=== PATIENT | female | born 1955 | race Caucasian/White ===

== ENCOUNTER 2018-06-12 10:51 | Inpatient (IN) ==
[2018-06-12 11:35] LABS: URINE SOURCE CLEAN CATCH
[2018-06-12 11:36] LABS: BASO# 0.01 X1000 (0.0-0.2); BASO% 0.1 % (0.0-0.8); EOS# 0.01 X1000 (0.0-0.7); EOS% 0.1 % (0.0-10.0); HEMATOCRIT 52.5 % (37.0-47.0); HEMOGLOBIN 18.3 g/dL (12.0-16.0); LYMPH# 0.23 X1000 (1.2-3.4); LYMPH% 2.7 % (20.5-51.1); MCH 31.1 PG (27-31); MCHC 34.9 g/dL (33-37); MCV 89.1 FL (81-99); MONO# 0.41 X1000 (0.11-0.59); MONO% 4.7 % (1.7-9.3); MPV 9.7 FL (7.4-10.4); NEUT# 7.98 X1000 (1.4-6.5); NEUT% 92.4 % (42.2-75.2); PLT 233 X1000 (130-400); RBC 5.89 XMIL (4.2-5.4); RDW 14.1 % (11.5-14.5); WBC 8.64 X1000 (4.8-10.8)
[2018-06-12 11:43] LABS: BILIRUBIN URINE NEGATIVE (NEGATIVE); BLOOD URINE NEGATIVE (NEGATIVE); COLOR ORANGE; GLUCOSE URINE 100 mg/dL (NEGATIVE); KETONE URINE TRACE mg/dL (NEGATIVE); LEUKOCYTES URINE LARGE (NEGATIVE); NITRITE URINE POSITIVE (NEGATIVE); PH URINE 5.5; PROTEIN URINE 100 mg/dL (NEGATIVE); SP GRAVITY URINE 1.025; TURBIDITY URINE HAZY (CLEAR); UROBILINOGEN URINE NORMAL (NORMAL)
[2018-06-12 11:56] LABS: ALBUMIN 4.5 g/dL (3.5-5.0); CALCIUM 9.1 mg/dL (8.8-10.2); CREATININE 1.1 mg/dL (0.5-0.9); POTASSIUM 4.4 mmol/L (3.5-5.1); TOTAL BILIRUBIN 1.84 mg/dL (0.20-1.00); TOTAL PROTEIN 6.8 g/dL (6.3-8.3)
[2018-06-12 12:00] LABS: UR EPITHELIAL CELLS <10 /HPF (<10); URINE BACTERIA 4+ /HPF; URINE CASTS WHITE CELL PRESENT; URINE CRYSTALS NONE SEEN; URINE RBC <10 /HPF (<10); URINE WBC TNTC /HPF (<10); URINE YEAST NONE SEEN
[2018-06-12 12:01] LABS: URINE SMALL ROUND CELLS NONE SEEN
--- NOTE | 2018-06-12 12:18 | EKG Report ---
Test Performed on : 06/12/2018 11:07:29 AM Test Reason : chest pain Blood Pressure : / mmHG Vent. Rate : 111 BPM Atrial Rate : 111 BPM P-R Int : 130 ms QRS Dur : 074 ms QT Int : 334 ms P-R-T Axes : 041 007 029 degrees QTc Int : 454 ms Sinus tachycardia. Otherwise normal ECG No previous ECGs available Unconfirmed Result
[2018-06-12 12:23] LABS: BANDS 4 % (0-1); LYMPHS 4 % (21-51); SEGS 92 % (42-75)
--- NOTE | 2018-06-12 12:32 | Diag Imaging Result Doc PS360 ---
CHEST-1 VIEW - 06/12/2018 INDICATION: chest pain COMPARISON: None FINDINGS: The lungs are normally expanded and clear. Heart size and mediastinal contours are normal. No pneumothorax or pleural effusion. IMPRESSION: Negative exam. Electronically signed by Zay Sepulveda 06/12/2018 12:30 PM
--- NOTE | 2018-06-12 13:23 | PROVIDER DOCUMENTATION ---
This chart was entered by Anahy Nathan Scribe, acting as scribe for Alok Bains MD. HPI-Chest Pain - General Chief Complaint: Chest Pain Stated Complaint: N/V Time Seen by Provider: 06/12/18 11:18 Source: patient, EMS, other (nurse from [facility]) Unable to obtain history due to:: other (pt is nonverbal at baseline) Allergies/Adverse Reactions: Patient Allergies Allergy/AdvReac Type Severity Reaction Status Date / Time banana Allergy Unknown Verified 06/12/18 11:51 Sulfa (Sulfonamide Allergy Unknown Verified 06/12/18 11:51 Antibiotics) Home Medications: Home Medication List Medication Instructions Recorded Confirmed Last Taken Type Nitrofurantoin Monohyd/M-Cryst 100 mg PO BID #20 capsule 03/14/18 Unknown Rx [Macrobid 100 mg Capsule] - History of Present Illness-CP Nature of Presenting Problem: 63 yof presents to the ed via ems. pt has aphasia and does not communicate at all. this is baseline per daughter. per ems pt walked to the desk at [facility] and was looking to be in distress and vomited x1. per ems pt was holding abdomen enroute. pt on exam is nontoxic in appearance and shows no distress. daughter is at bedside Location: reports: epigastric (was gaurding) Chest Pain Radiation: reports: no radiation Severity in ED: mild Onset/Duration: this morning Timing: gone now Context/Activities at Onset: reports: light activity Modifying Factors: improves with: nothing Associated Symptoms: reports: abdominal pain (epigastric), nausea, vomiting (x1) . denies: shortness of breath Nitro Today/Relief: no nitro taken today Aspirin Treatment Today: no aspirin today Prior Chest Pain/Cardiac Workup: reports: no prior chest pain Similar Symptoms Previously?: No Recently Seen Here or By Another Healthcare Provider: No Review of Systems - Adult - REVIEW OF SYSTEMS - ADULT Constitutional: denies: chills, fever Eyes: reports: no symptoms reported Ears, Nose, Mouth & Throat: reports: no symptoms reported Cardiovascular: reports: see HPI, chest pain. denies: palpitations, syncope Respiratory: denies: shortness of breath, wheezing Gastrointestinal: reports: see HPI, abdominal pain, nausea, vomiting (x1) Genitourinary: reports: no symptoms reported Musculoskeletal: denies: back pain, neck pain Integumentary: reports: no symptoms reported Neurological: denies: dizziness/vertigo, headache/migraines Psychiatric: reports: no symptoms reported Endocrine: reports: no symptoms reported Hematologic/Lymphatic: reports: no symptoms reported Allergic/Immunologic: reports: no symptoms reported All Other Systems: Reviewed and Negative Past History - Adult - PAST MEDICAL HISTORY-ADULT Review of Records: reports: Old Records Reviewed, Nursing Assessment Review, Medications Reviewed, Social history reviewed & non-contributory. Major Childhood Illnesses: reports: denies history Cardiovascular: reports: HTN Respiratory: reports: denies history Gastrointestinal: reports: denies history Obstetrical/Gynecological: reports: denies history Genitourinary: reports: denies history Musculoskeletal: reports: denies history Hand Dominance: Right Handed Neurological: reports: Alzheimer's, cognitive dysfunction, dementia, speech difficulty Psychiatric: reports: denies history Endocrine/Immune: reports: Diabetes Diabetes Type: Type 2 Other Conditions: reports: denies history - PRIOR SURGERIES/PROCEDURES Surgical/Procedure History: reports: - IMMUNIZATION STATUS Childhood Immunizations: See Nurse Assessment Flu Vaccine: See Nurse Assessment - FAMILY HISTORY Family History: reviewed, not pertinent - SOCIAL HISTORY Smoking: non-smoker Substance Use: none/never Living Situation: care facility Physical Exam-General - PHYSICAL EXAM-ADULT Exam Limited by: pt is nonverbal at baseline Initial Vital Signs Reviewed: Yes - CONSTITUTIONAL General Appearance: appears well, alert, no apparent distress, obese - EYES Eyes: PERRL/EOMI, pink conjunctivae - HEAD, EARS, NOSE, MOUTH & THROAT HENMT: moist mucous membranes - NECK Neck: normal inspection - RESPIRATORY Respiratory: normal breath sounds - CARDIOVASCULAR Cardiovascular: normal peripheral pulses, tachycardia (111) - GASTROINTESTINAL (ABDOMEN) Abdominal Exam: normal bowel sounds, soft, other (well healed c section scar) - LYMPHATIC Lymphatic: no adenopathy - MUSCULOSKELETAL Back Exam: normal inspection Extremity: normal inspection - SKIN Integumentary: normal color, normal turgor, warm/dry - NEUROLOGIC Neurologic: aphasia (baseline) - HEART Score HEART Score: History: Slightly Suspicious HEART Score: ECG: Non-Specific Repolarization Disturbance/LBBB/PM HEART Score: Age: > or = 65 Years HEART Score: Risk Factors for Atherosclerotic Disease: 1 or 2 Risk Factors HEART Score: Troponin: < or = Normal Limit Total HEART Score:: 4 Progress - PLAN OF CARE/RESULTS Progress/Plan/Lab Results: Vital Signs - 8 hr 06/12/18 11:02 06/12/18 13:09 Temperature 97.6 F Pulse Rate 111 H 107 H Respiratory Rate 20 22 Blood Pressure 154/89 143/80 O2 Sat by Pulse Oximetry 95 99 Laboratory Results - last 24 hr 06/12/18 06/12/18 06/12/18 11:15 11:15 11:15 WBC 8.64 RBC 5.89 H Hgb 18.3 H Hct 52.5 H MCV 89.1 MCH 31.1 H MCHC 34.9 RDW Std Deviation 14.1 Plt Count 233 MPV 9.7 Immature Gran % (Auto) 0.0 Neut % (Auto) 92.4 H Lymph % (Auto) 2.7 L [place] % (Auto) 4.7 Eos % (Auto) 0.1 Baso % (Auto) 0.1 Immature Gran # (Auto) 0.00 Neut # (Auto) 7.98 H Lymph # (Auto) 0.23 L [place] # (Auto) 0.41 Eos # (Auto) 0.01 Baso # (Auto) 0.01 Segmented Neutrophils 92 H Band Neutrophils 4 H Lymphocytes 4 L Sodium 143 Potassium 4.4 Chloride 100 Carbon Dioxide 25 Anion Gap 18 BUN 14 Creatinine 1.1 H Estimated GFR/1.73 m2 50 BUN/Creatinine Ratio 13 Glucose 277 H Calculated Osmolality 295 Calcium 9.1 Total Bilirubin 1.84 H AST 14 ALT 20 Alkaline Phosphatase 89 Creatine Kinase 25 Troponin T < 0.010 Euz-K-Ilmlggqynwd Pept Total Protein 6.8 Albumin 4.5 Globulin 2.3 Albumin/Globulin Ratio 2.0 Urine Source Urine Color Urine Turbidity Urine pH Ur Specific [place] Urine Protein Ur Glucose (Stick) Ur Ketones (Stick) Urine Blood Urine Nitrite Urine Bilirubin Urobilinogen Dipstick Urine Leukocytes Urine WBC (Auto) Urine RBC (Auto) U Epithel Cells (Auto) Urine Bacteria (Auto) Urine Crystals Small Round Cells Urine Casts Urine Yeast-like Cells 06/12/18 06/12/18 11:15 11:30 WBC RBC Hgb Hct MCV MCH MCHC RDW Std Deviation Plt Count MPV Immature Gran % (Auto) Neut % (Auto) Lymph % (Auto) [place] % (Auto) Eos % (Auto) Baso % (Auto) Immature Gran # (Auto) Neut # (Auto) Lymph # (Auto) [place] # (Auto) Eos # (Auto) Baso # (Auto) Segmented Neutrophils Band Neutrophils Lymphocytes Sodium Potassium Chloride Carbon Dioxide Anion Gap BUN Creatinine Estimated GFR/1.73 m2 BUN/Creatinine Ratio Glucose Calculated Osmolality Calcium Total Bilirubin AST ALT Alkaline Phosphatase Creatine Kinase Troponin T Srr-K-Liybxxowexb Pept 82 Total Protein Albumin Globulin Albumin/Globulin Ratio Urine Source CLEAN CATCH Urine Color ORANGE Urine Turbidity HAZY Urine pH 5.5 Ur Specific [place] 1.025 Urine Protein 100 A Ur Glucose (Stick) 100 A Ur Ketones (Stick) TRACE A Urine Blood NEGATIVE Urine Nitrite POSITIVE A Urine Bilirubin NEGATIVE Urobilinogen Dipstick NORMAL Urine Leukocytes LARGE A Urine WBC (Auto) TNTC A Urine RBC (Auto) <10 U Epithel Cells (Auto) <10 Urine Bacteria (Auto) 4+ Urine Crystals NONE SEEN Small Round Cells NONE SEEN Urine Casts WHITE CELL PRESENT Urine Yeast-like Cells NONE SEEN Orders Category Date Time Status Admit - [facility] Routine AdmDCTranf 06/12/18 13:02 Active Notify MD if DIRECTED Care 06/12/18 13:02 Active OT: OT EVALUATION - HOSPITAL ( DIRECTED Care 06/12/18 13:36 Active Saline Loc DIRECTED Care 06/12/18 13:02 Active Vital Signs Order Q 4-HR ASSESS Care 06/12/18 13:02 Active Z-Document. for Tele Applied ORDERED Care 06/12/18 13:03 Active Social Service Consult Routine Cons 06/12/18 13:[address] THORAX W/O CONTRAST [CT] Stat Exams 06/12/18 13:35 Ordered cxr [CHEST-1 VIEW] [RAD] Stat Exams 06/12/18 11:20 Completed CBC WITH DIFF [HEME] Stat Lab 06/12/18 11:15 Completed CK PROFILE [SP CHEM] Stat Lab 06/12/18 11:15 Completed COMPREHENSIVE METABOLIC PANEL [CHEM] Stat Lab 06/12/18 11:15 Completed PRO B-NATRIURETIC PEPTIDE Stat Lab 06/12/18 11:15 Completed TROPONIN T Q6H Lab 06/12/18 13:35 Uncollected TROPONIN T Q6H Lab 06/12/18 19:35 Uncollected TROPONIN T Q6H Lab 06/13/18 01:35 Uncollected TROPONIN T Stat Lab 06/12/18 11:15 Completed URINALYSIS [URINALYSIS] Stat Lab 06/12/18 11:30 Completed URINE CULTURE [RM] Stat Lab 06/12/18 13:35 Uncollected URINE MANUAL MICROSCOPIC [URINALYSIS] Stat Lab 06/12/18 11:30 Completed 0.9% Sodium Chloride Inj [Ns] 1,000 ml Med 06/12/18 13:35 Active IV 100 mls/hr CefTRIAXONE [Rocephin] 2 gm Med 06/12/18 13:35 Active 0.9% Sodium Chloride Inj [Ns] 50 ml IV Q24H Enoxaparin [Lovenox] Med 06/12/18 13:35 Active 40 mg SUBQ Q24H Morphine Med 06/12/18 13:35 Active 2 mg IV Q4H PRN PRN Ondansetron [Zofran] Med 06/12/18 13:35 Active 4 mg IV Q4H PRN PRN Pantoprazole [Protonix] Med 06/12/18 13:35 Active 40 mg IV Q24H Oxygen Device Routine Oth 06/12/18 13:02 Active Telemetry [OM.EQ] Routine Oth 06/12/18 13:02 Active EKG [EKG] Stat Ther 06/12/18 11:18 Draft Echo Spec/Color Dop W/O Contra Routine Ther 06/12/18 13:35 Ordered PT [Physical Therapy Eval/Treatment] [OM.PT] Routine Ther 06/12/18 13:36 Active Transfer/Admit Order [TRANSFER] Routine Transfer 06/12/18 13:03 Ordered Result Diagrams: 06/12/18 11:15 06/12/18 11:15 - REASSESSMENT Reassessment #1 Time Reassessed: 12:43 Status: improving - EKG 1 Time of EKG reading by physician:: 11:07 EKG Read and Signed by:: Alok Bains EKG Interpretation (*Must complete 3 of following elements*): Normal Rate: 111 Rhythm: sinus tachycardia Mcnary: normal QRS: normal NC Interval: normal ST Wave: normal - XRAY 1 XRAY: Bilateral XRAY Study: Chest Impression: See EMR Report (CHEST-1 VIEW - 06/12/2018 INDICATION: chest pain COMPARISON: None FINDINGS: The lungs are normally expanded and clear. Heart size and mediastinal contours are normal. No pneumothorax or pleural effusion. IMPRESSION: Negative exam. Electronically signed by Zay Sepulveda 06/12/2018 12:30 PM 06/12/18 1230 Interpreting Physician: Zay Sepulveda MD Dictated Date/Time: 06/12/18 1229 cc: Alok Bains MD; None,PCP) - CONSULTS/PCP/HOSPITALIST Notification #1 *Consult/PCP/Hospitalist*: estrella with hospitalist Time Discussed: 12:44 Reason/Comments: uti Consult Disposition: other (phine consult) #2 Consult: Pt discussed with hospitalist who agreed to admit. Time Discussed: 13:00 Consult Disposition: Will see in ED Departure - Departure Date of Disposition Decision: 06/12/18 Time of Disposition Decision: 13:22 DIAGNOSIS: UTI (urinary tract infection), Chest pain, Elevated blood pressure reading Disposition: ADMITTED INPATIENT 09 Certified Medical Emergency: Emergent Condition: Fair Referrals and Follow-Ups: None,PCP [Primary Care Provider] - - Critical Care Note This patient required my direct & personal management of CC.: No Attestation - Physician/ JOSUE Attestation Patient care was provided by Advanced Practice Provider:: No The physician spent face to face time with patient:: Yes Advanced Practice Provider documentation review:: Supervising physician onsite and consulted in the evaluation and care of this patient. The physician did have a face to face encounter with the patient. This chart was documented by the indicated scribe, (Anahy Nathan Scribe) and accurately reflects the services I performed and decisions made by me, Alok Bains MD, as attested by the provider's signature.
[2018-06-12] MEDS ORDERED: MORPHINE IV PRN (13:35)
[2018-06-12] MEDS ORDERED: ZOFRAN IV PRN (13:35)
[2018-06-12] MEDS: LOVENOX SUBQ SCH (14:04)
[2018-06-12] MEDS: ROCEPHIN 2 GM in NS 50 ML IV SCH (14:09)
[2018-06-12] MEDS: NS 1,000 ML IV SCH ×2 (14:09→20:33)
[2018-06-12] MEDS: PROTONIX IV SCH (14:09)
[2018-06-12] MEDS ORDERED: SODIUM CHLORIDE 0.9% INJ SCH (14:13)
--- NOTE | 2018-06-12 14:46 | Diag Imaging Result Doc PS360 ---
CT THORAX W/O CONTRAST - 06/12/2018 INDICATION: chest pain COMPARISON: Chest x-ray from earlier today FINDINGS: There is no adenopathy. Heart and great vessels are normal. There is some linear atelectasis in the lung bases. Otherwise no significant infiltrates. No pneumothorax or pleural effusion. Upper abdominal images are unremarkable. There are moderate degenerative changes of the spine. No acute or suspicious bony lesion. IMPRESSION: No acute disease. This exam was performed using automated exposure control, adjustment of mA or kV according to patient size, and/or use of iterative reconstruction technique Electronically signed by Zay Sepulveda 06/12/2018 2:44 PM
[2018-06-12 16:02] LABS: HEMOGLOBIN A1C 5.9 % (4.8-6.0)
--- NOTE | 2018-06-12 17:57 | HISTORY AND PHYSICAL ---
CHIEF COMPLAINT: Chest pain. HISTORY OF PRESENT ILLNESS: Mrs. Fajardo is a 63-year-old female with a history of hypertension, diabetes mellitus, and advanced dementia, who presents from [facility] with a question of chest pain. She has permanent aphasia from her dementia and is unable to communicate. Her daughter at the bedside states that earlier this morning she walked up to the front tender at [place] clutching her chest and had an episode of emesis. At that time, the staff felt she might be having an NC and transported her here to our ER. In the ER, she was noted to have a large urinary tract infection and some polycythemia but otherwise really unremarkable. Her troponins have been negative x2 sets. Her EKG does not show anything acute. We have been asked to admit her for further treatment and evaluation. PAST MEDICAL HISTORY: 1. Advanced dementia with aphasia. 2. Diabetes mellitus type 2 no longer on medication, not needed per daughter's report due to normal glycemia. 3. Hypertension. 4. Chronic urinary tract infections. 5. Urinary incontinence. PAST SURGICAL HISTORY: and nasal surgery. SOCIAL HISTORY: No tobacco, alcohol, or drug use. She is . Her daughter is at the bedside. She lives at [place]. FAMILY HISTORY: Noncontributory. ALLERGIES: To banana and sulfa. REVIEW OF SYSTEMS: Unable to obtain. HOME MEDICATIONS: Yet to be compiled. PHYSICAL EXAMINATION: VITAL SIGNS: Blood pressure is 143/80, heart rate is 107, respiratory rate 22, O2 saturation is 99% on room air, temperature is 97.6. GENERAL: This is a well-developed well-nourished female lying in hospital bed in no acute distress. NEUROLOGIC: The patient is sitting in hospital bed, awake, but does not acknowledge verbal stimulus. She will not follow commands. She does occasionally move all 4 extremities. HEENT: Head is atraumatic and normocephalic. Her pupils are equal, round, and reactive to light. Oral mucosa is dry. NECK: Trachea is midline. There is no JVD. CHEST: Clear to auscultation. CARDIOVASCULAR: Regular rate and rhythm. S1 and S2 is noted. No murmurs. GASTROINTESTINAL: Soft, nondistended, nontender. Bowel sounds positive. EXTREMITIES: Trace edema. Pulses 2+ bilaterally. DIAGNOSTIC DATA: Chest x-ray is negative. Chest CT negative. EKG sinus tachycardia, no acute disease. WBC 8.64, hemoglobin 18.3, hematocrit 52.5, platelet count 233. Sodium 143, potassium 4.4, chloride 100, CO2 25, anion gap 18, BUN 14, creatinine 1.1, glucose 277, calcium 9.1, total bilirubin 1.84, AST 14, ALT 20, alkaline phosphatase 89. Troponin negative x2 sets. Albumin 4.5. UA large UTI. ASSESSMENT AND PLAN: 1. Question of chest pain: Will check an echocardiogram, trend her cardiac enzymes, make sure she is on aspirin, check lipid panel and A1c in the morning. Will continue Cardiology if there is any acute changes. 2. Urinary tract infection. Cultures pending. Continue antibiotics. 3. Diabetes mellitus: Blood sugar is 277. Will start her pattern sugars and check a hemoglobin A1c. 4. Hypertension. Will continue home medications once reconciled. 5. Polycythemia: Likely dehydration related. Will add normal saline and recheck a CBC in the morning. 6. The patient is Do Not Resuscitate level 1. Dictated by LAURA Fung for Usman Pedersen MD Addendum: Patient seen and examined by myself. Agree with LAURA note. It reflects my assessment and plan. Patient is being admitted to hospital for chest pain workup and UTI. Will trend troponins, place her on telemetry and will order echocardiogram. Urine culture has been ordered so will start IV antibiotics now and will monitor this patient closely. cc: LAURA Fung MD [facility]
[2018-06-12] MEDS: HUMULIN R SUBQ SCH ×2 (18:57→20:32)
[2018-06-12] MEDS: ASPIRIN PO SCH (19:01)
[2018-06-13] MEDS ORDERED: TYLENOL PO PRN (02:39)
[2018-06-13] MEDS: NS 1,000 ML IV SCH ×2 (06:14→15:34)
[2018-06-13] MEDS: HUMULIN R SUBQ SCH ×4 (06:19→21:20)
[2018-06-13 07:00] LABS: BASO# 0.01 X1000 (0.0-0.2); BASO% 0.2 % (0.0-0.8); EOS# 0.02 X1000 (0.0-0.7); EOS% 0.4 % (0.0-10.0); HEMATOCRIT 43.5 % (37.0-47.0); HEMOGLOBIN 15.1 g/dL (12.0-16.0); LYMPH# 0.88 X1000 (1.2-3.4); MCH 31.7 PG (27-31); MCHC 34.7 g/dL (33-37); MCV 91.2 FL (81-99); MONO# 0.57 X1000 (0.11-0.59); MONO% 12.3 % (1.7-9.3); MPV 9.7 FL (7.4-10.4); NEUT# 3.14 X1000 (1.4-6.5); NEUT% 68.1 % (42.2-75.2); PLT 163 X1000 (130-400); RBC 4.77 XMIL (4.2-5.4); RDW 13.9 % (11.5-14.5); WBC 4.62 X1000 (4.8-10.8)
[2018-06-13 07:29] LABS: AGAP 10; BUN 11 mg/dL (8-22); CALCIUM 7.7 mg/dL (8.8-10.2); CHLORIDE 109 mmol/L (98-107); COSMO 291; CREATININE 0.7 mg/dL (0.5-0.9); ESTIMATED GFR > 60; GLUCOSE 176 mg/dL (70-104); POTASSIUM 3.8 mmol/L (3.5-5.1); SODIUM 144 mmol/L (136-145); TCO2 25 mmol/L (25-35)
--- NOTE | 2018-06-13 10:04 | ECHO REPORT ---
ORDER DATE: 06/12/2018 INDICATION FOR THE STUDY: Dementia, hypertension. FINDINGS: 1. The right atrium appears normal in size at 2.6 cm. 2. Trace tricuspid regurgitation. Insufficient data to estimate RV systolic pressure. 3. Normal RV size and systolic function. 4. No significant pulmonic insufficiency. 5. Normal left atrial size with a dimension of 3.9 cm. 6. No mitral valve prolapse. No significant mitral regurgitation. 7. The left ventricle end-diastolic borders are very difficult to visualize. I do not believe there is a significant degree of LV dilatation. In addition, if there is left ventricular hypertrophy, it is likely very mild. Normal LV systolic function. Estimated ejection fraction of 65% with no clear wall motion abnormalities. 8. Aortic valve opens well with no evidence of stenosis or insufficiency. 9. Aorta appears normal in visualized segments. 10. No pericardial effusion seen. cc: MD Usman Spears MD
[2018-06-13] MEDS: ASPIRIN PO SCH (10:24)
--- NOTE | 2018-06-13 12:00 | PROGRESS NOTE ---
DATE: 06/13/2018 SUBJECTIVE: The patient is nonverbal. Daughter, who is at bedside, reports that she is fine. No acute issues noted as per nursing staff. OBJECTIVE: Vital Signs: Temperature 98.4 degrees, heart rate 83, respiratory rate 19, blood pressure 150/61, O2 saturation 96% on room air. General Examination: This is a chronically ill- looking, 63-year-old, female lying in bed, in no acute distress. Cardiovascular Examination: S1 and S2 heard. No murmurs, gallops, or rubs. Regular rate and rhythm. Respiratory Examination: Clear bilaterally to auscultation. No work of breathing or using accessory muscles. Abdomen: Soft, nontender to palpation. Bowel sounds present. No organomegaly. Extremities: No clubbing, cyanosis, or edema. Peripheral pulses present in both legs. Neurological Examination: The patient is sitting in the hospital bed and does not follow commands. Occasionally, she does move her extremities. Laboratory Data: Reviewed. Troponin has been checked 3 times and is negative. Echocardiogram, Doppler showed ejection fraction of 65% with no gross valvular abnormalities noted. ASSESSMENT AND PLAN: 1. Question of chest pain. One reason why this patient was admitted to the hospital was a possibility of chest pain because the patient is nonverbal and she pointed at her chest. We have done basically an echocardiogram, we have checked troponins three times, and electrocardiogram, and everything returned normal. The hemoglobin A1c is completely normal at 5.9, even though she has some elevation of blood sugars. At this point, we are not going to pursue anymore further cardiac workup. 2. Urinary tract infection. The urinalysis showed some contamination but the urine culture is okay but she has developed a fever of 100.7. At this time, because clinically she is not able to provide any more information, I prefer to continue with ceftriaxone and complete 10 days of that. 3. Diabetes mellitus type 2. Hemoglobin A1c is normal. We will continue to do a sliding scale insulin and Accu-Cheks before meals and also at bedtime. 4. Hypertension. Blood pressure is under control. We will continue with the same management. 5. Code status. Do Not Resuscitate level 1. 6. Disposition. The patient has been living in an assisted living facility. As per the family, they were told that they had 30 days to look for a higher level of care facility like a long- term prison. I think this patient needs to be sent to a rehab facility versus long-term care facility. The patient has history of advanced severe temporal dementia. We have talked with social services designee and they are working on placement for this patient. cc: Usman Pedresen MD
[2018-06-13] MEDS: LOVENOX SUBQ SCH (15:25)
[2018-06-13] MEDS: PROTONIX IV SCH (15:26)
[2018-06-13] MEDS: ROCEPHIN 2 GM in NS 50 ML IV SCH (15:34)
[2018-06-14] MEDS: NS 1,000 ML IV SCH ×3 (01:29→22:38)
[2018-06-14] MEDS: HUMULIN R SUBQ SCH ×4 (06:29→21:14)
[2018-06-14 07:32] LABS: BASO# 0.01 X1000 (0.0-0.2); BASO% 0.2 % (0.0-0.8); EOS# 0.17 X1000 (0.0-0.7); EOS% 3.5 % (0.0-10.0); HEMATOCRIT 42.1 % (37.0-47.0); HEMOGLOBIN 14.8 g/dL (12.0-16.0); LYMPH# 1.58 X1000 (1.2-3.4); LYMPH% 32.4 % (20.5-51.1); MCH 31.6 PG (27-31); MCHC 35.2 g/dL (33-37); MONO# 0.67 X1000 (0.11-0.59); MONO% 13.8 % (1.7-9.3); NEUT# 2.44 X1000 (1.4-6.5); NEUT% 50.1 % (42.2-75.2); PLT 134 X1000 (130-400); RBC 4.68 XMIL (4.2-5.4); RDW 13.6 % (11.5-14.5); WBC 4.87 X1000 (4.8-10.8)
[2018-06-14 07:58] LABS: AGAP 9; BUN 8 mg/dL (8-22); CALCIUM 7.1 mg/dL (8.8-10.2); CHLORIDE 108 mmol/L (98-107); COSMO 286; CREATININE 0.7 mg/dL (0.5-0.9); ESTIMATED GFR > 60; GLUCOSE 142 mg/dL (70-104); POTASSIUM 3.8 mmol/L (3.5-5.1); SODIUM 143 mmol/L (136-145); TCO2 26 mmol/L (25-35)
[2018-06-14] MEDS: ASPIRIN PO SCH (08:28)
[2018-06-14] MEDS: LOVENOX SUBQ SCH (13:15)
[2018-06-14] MEDS: PROTONIX IV SCH (13:16)
[2018-06-14] MEDS: ROCEPHIN 2 GM in NS 50 ML IV SCH (14:43)
--- NOTE | 2018-06-14 20:03 | PROGRESS NOTE ---
DATE: 06/14/2018 INTERVAL HISTORY: No acute events. The patient was admitted for sepsis due to urinary tract infection, receiving intravenous antibiotic. Input and output charting suggests that the patient ate 75% of her meals. SUBJECTIVE: Patient is nonverbal, does not appear in acute distress. VITAL SIGNS: Suggestive of temperature 98.5, pulse 86, respiratory rate 18, blood pressure 147/81. Saturating 98% on room air. PHYSICAL EXAMINATION: General: Does not appear in any acute distress. She does not follow commands. Lungs: Air entry bilaterally equal. No wheeze, no rhonchi, no crackles. Cardiovascular: S1, S2 normal. No murmur, rub or gallop. Abdomen: Soft, nontender. No lower extremity edema. LABS: Suggestive of no leukocytosis. Stable hemoglobin, hematocrit and platelet count. Acceptable range of blood sugar levels. Lipid panels were within normal limits. Microbiology: Urine culture was thought to be a possible contaminant with multiple organisms. Blood cultures no growth to date. ASSESSMENT AND PLAN: 1. Sepsis due to urinary tract infection, though urine sample was thought to be contaminated. The patient did have leukocytosis and tachycardia on admission, which after intravenous antibiotics had resolved. My plan is to complete 5 to 7 days course of treatment. I will change her antibiotics to levofloxacin at the time of discharge. 2. Chest pain, as suggested by the patient was pointing towards her chest. However, echocardiogram, troponins, EKG have been unremarkable. No further cardiac workup would be needed in her case. 3. History of [id number] diabetes mellitus type 2. Her hemoglobin A1c is normal. 4. Essential hypertension, currently in acceptable range. 5. Acute kidney injury on admission, now resolved. 6. History of frontotemporal dementia, aware. Currently appears to be at baseline. 7. Disposition. The patient has DNR level 1 code status. I called the patient's daughter who is a surrogate decision maker and discussed with her about patient's clinical condition. Daughter is willing to take the patient to rehab for which she has been provided options. I think the patient should be ready to be discharged in next 24 hours, as soon as a bed becomes available. cc: MD EMA Clancy
[2018-06-15] MEDS: HUMULIN R SUBQ SCH ×2 (05:59→13:06)
[2018-06-15 07:23] LABS: BASO# 0.02 X1000 (0.0-0.2); BASO% 0.5 % (0.0-0.8); EOS# 0.16 X1000 (0.0-0.7); EOS% 3.6 % (0.0-10.0); HEMATOCRIT 40.3 % (37.0-47.0); HEMOGLOBIN 14.5 g/dL (12.0-16.0); IMM GRAN# 0.02 X1000 (0.0-0.04); IMM GRAN% 0.5 % (0.0-0.5); LYMPH# 1.31 X1000 (1.2-3.4); LYMPH% 29.6 % (20.5-51.1); MCH 31.6 PG (27-31); MCV 87.8 FL (81-99); MONO# 0.44 X1000 (0.11-0.59); MONO% 9.9 % (1.7-9.3); MPV 10.3 FL (7.4-10.4); NEUT# 2.48 X1000 (1.4-6.5); NEUT% 55.9 % (42.2-75.2); PLT 145 X1000 (130-400); RBC 4.59 XMIL (4.2-5.4); RDW 13.1 % (11.5-14.5); WBC 4.43 X1000 (4.8-10.8)
[2018-06-15] MEDS ORDERED: DESYREL PO PRN (07:33)
[2018-06-15] MEDS ORDERED: TYLENOL PO PRN (07:33)
[2018-06-15] MEDS ORDERED: MELATONIN PO PRN (07:33)
[2018-06-15 07:36] LABS: AGAP 10; BUN 6 mg/dL (8-22); CALCIUM 7.9 mg/dL (8.8-10.2); CHLORIDE 109 mmol/L (98-107); COSMO 288; CREATININE 0.6 mg/dL (0.5-0.9); ESTIMATED GFR > 60; GLUCOSE 164 mg/dL (70-104); POTASSIUM 3.5 mmol/L (3.5-5.1); SODIUM 144 mmol/L (136-145); TCO2 25 mmol/L (25-35)
[2018-06-15] MEDS ORDERED: KEFLEX PO SCH (09:00)
[2018-06-15] MEDS ORDERED: LOPRESSOR PO SCH (09:00)
[2018-06-15] MEDS ORDERED: PRINIVIL PO SCH (09:00)
--- NOTE | 2018-06-15 09:35 | PROGRESS NOTE ---
DATE: 06/15/2009 INTERVAL HISTORY: No acute overnight events. SUBJECTIVE: The patient is nonverbal, does not appear to be in any acute distress. VITALS: Suggestive of temperature 98.6 degrees, pulse 85, blood pressure 178/66, saturation 96% on room air. Her respiratory rate is 18 per minute. PHYSICAL EXAMINATION: The patient does not appear in any acute distress. She is awake, alert, but not responding, does not follow commands. Lungs: Air entry bilaterally. No wheeze, rhonchi, crackles. Cardiovascular: S1, S2 normal. No murmur or gallop. Abdomen: Soft, nontender. Extremities: No lower extremity edema. LAB: No new lab abnormalities today. Her hemoglobin, hematocrit, platelet within normal range. Creatinine of 0.6. ASSESSMENT AND PLAN: 1. Chest pain suggested by the patient was pointing towards her chest with negative workup including EKG, troponins and echocardiogram. 2. Sepsis due to urinary tract infection, though the urine sample was an improper collection. Her fever and tachycardia resolved after antibiotics. I will discharge her on p.o. cephalexin. 1. Wya-xodrwyn-rjbkqzuzh diabetes mellitus type 2. However, hemoglobin A1c is normal. 2. Essential hypertension. I resumed her home metoprolol, lisinopril. 3. Acute kidney injury on admission, now resolved. 4. History of dementia. However, at baseline she is nonverbal. She is alert. She does not engage in any conversation. She does not follow commands meaningfully. However, she is able to feed herself. According to the family, she can spontaneously get up while eating and wander around inside the room. However, over last few weeks, her level of physical activity has been declining. DISPOSITION: The patient will be discharged to rehab. Plan of care was discussed with patient's daughter who is a surrogate decision maker yesterday. All of her questions have been answered. cc: Pablo Garcia MD
[2018-06-15] MEDS: PRINIVIL PO SCH ×2 (09:46→09:47)
[2018-06-15] MEDS: ASPIRIN PO SCH (09:47)
[2018-06-15 11:40] VITALS: BP 170/83
--- NOTE | 2018-06-15 12:17 | DISCHARGE SUMMARY ---
ADMISSION DATE: 06/12/2018 DISCHARGE DATE: 06/15/2018 PRIMARY CARE PHYSICIAN: None listed. PROCEDURES AND FINDINGS: 1. Echocardiogram, 06/12/2018, ejection fraction 65% with no clear wall motion abnormalities, trace tricuspid regurgitation. No pericardial effusion. 2. EKG, 06/12/2018, reveals sinus tachycardia. 3. Chest CT, 06/12/2018, no acute disease. No significant infiltrates. No pneumothorax or pleural effusion. Moderate degenerative changes of the spine. Some linear atelectasis in the lung bases. DISCHARGE DIAGNOSES: 1. Chest pain. This was her original complaint upon admission to the hospital. Cardiac workup including echocardiogram, troponins, and EKG have all been unremarkable. The patient's symptoms have resided. 2. Sepsis due to urinary tract infection. This patient had leukocytosis and tachycardia on admission. IV antibiotics were provided and patient's symptoms have resolved. She will continue with a course of p.o. Keflex upon discharge. 3. History of [id number] mellitus type 2. Her hemoglobin A1c is normal at 5.9. 4. Acute kidney injury on admission. This has resolved with IV fluid hydration. 5. Essential hypertension. Blood pressures have been in the normal range. 6. History of dementia. This patient is at baseline. HOSPITAL COURSE: Ms Fajardo is a 63-year-old female with a past medical history of hypertension, diabetes, and advanced dementia with aphasia. She resides at [facility] and she was brought into the emergency room with concern for chest pain. Staff at [facility] states that she was clutching her chest and had an episode of emesis. At that time, she was transported to the emergency room. Her troponins were negative and EKG was unremarkable. An echocardiogram was also completed and negative. She was found to have a significant urinary tract infection and she was treated with IV Rocephin and IV fluid hydration. Her chest pain resolved and no further cardiac workup was required. She is clinically improved and she will be discharged to [facility] and continue with a course of p.o. Keflex for urinary tract infection. Her last vital signs were temperature 98.6 degrees, heart rate 85, blood pressure 178/66, O2 saturation 96% on room air. Her last labs, WBC 4.43, hemoglobin 14.5, hematocrit 40.3, platelets 145,000. Sodium 144, potassium 3.5, BUN 6, creatinine 0.6, glucose 155. Troponins negative, less than 0.01 x3. DISCHARGE INSTRUCTIONS: Activity as tolerated. Take care to prevent falls. Diet: Soft diet. Complete your full course of antibiotics for urinary tract infection. Please return to the emergency room for any shortness of breath, chest pain, or unmanageable pain, signs or symptoms of infection. DISCHARGE MEDICATIONS: Per Dr. Garcia. Please see MAR. DISPOSITION: [facility]. Dictated by LAURA Jimenes for Pablo Garcia MD cc: Pablo Garcia MD
[2018-06-15] MEDS: PROTONIX IV SCH (13:43)
[2018-06-15] MEDS ORDERED: REMERON PO SCH (21:00)
== END 2018-06-15 17:26 | DRG 872 ==
LOC: SUPCPDRO → ED 10:51 → 3N 14:04 → SUATTDRO 14:04
PROVIDERS: ATTEND Internal Medicine
CPT/HCPCS: 71010; 71045; 71250; 80048; 80053; 80061; 81001; 82550; 82948; 83036; 83721; 83880; 84484; 85025; 87040; 87088; 93005; 93306; 94761; 96372; 96374; 96375; 97162; 97165; 97530; 97535; 99285; A9270; C9113; J0696; J1650; J7030; S0164; XXXXX